=== PATIENT | male | born 1995 | race Caucasian/White ===

== ENCOUNTER 2021-01-16 08:24 | Emergency (ER) | payer OTHER ==
[~2021-01-16] VITALS: Ht 182.9 cm; Wt 120.2 kg
[2021-01-16] MEDS ORDERED: CRUTCH1 EACH MISC (08:49)
[2021-01-16] MEDS ORDERED: HYDROCODON-ACE1 EA10 PO (08:49)
== END 2021-01-16 08:59 | disposition home or self-care (01) ==
LOC: ED 08:24
DX: S96.911A Strain of unspecified muscle and tendon at ankle and foot level, right foot, initial encounter (principal); W50.0XXA Accidental hit or strike by another person, initial encounter; Y93.67 Activity, basketball
CPT/HCPCS: 73630; 99283-25

== ENCOUNTER 2022-11-14 19:31 | Emergency (ER) | payer OTHER ==
[~2022-11-14] VITALS: Ht 182.9 cm; Wt 129.0 kg
[~2022-11-14 19:31] MED LIST: CRUTCH1 EACH MISC; HYDROCODON-ACE1 EA10 PO
== END 2022-11-14 21:10 | disposition home or self-care (01) ==
LOC: ED 19:31
DX: H57.89 Other specified disorders of eye and adnexa (principal); H57.11 Ocular pain, right eye
CPT/HCPCS: 99283